=== PATIENT | female | born 1970 | race American Indian/Alaskan Native ===

== ENCOUNTER 2017-08-30 19:23 | Emergency (ER) | payer SELFPAY ==
[2017-08-30 21:36] LABS: Bacteria,Urine 2+ /HPF (Negative); Bilirubin,Urine NEG (Negative); Blood,Urine NEG (Negative); Color,Urine Yellow (Yellow); Mucus,Urine 2+ /HPF; Protein,Urine <15 mg/dL mg/dL (Negative); Urobilinogen,Urine < 2.0 mg/dL (<2.0)
[2017-08-31] MEDS ORDERED: NACL 0.9% 1000 ML 1,000 ML IV ONE (00:35)
[2017-08-31] MEDS ORDERED: TORADOL IV ONE (00:35)
[2017-08-31] MEDS ORDERED: ZOFRAN IV ONE (00:36)
--- NOTE | 2017-08-31 00:40 | Emergency Department Report ---
ED Abdominal Pain HPI - General Chief Complaint: Urogenital-Female Stated Complaint: ABDOMINAL PAIN,NAUSEA Time Seen by Provider: 08/30/17 23:56 Source: patient, RN notes reviewed Mode of arrival: Ambulatory Limitations: No Limitations - History of Present Illness Initial Comments: His is a 46-year-old female. The patient is previously unknown to this provider. Has a history of hysterectomy. Does not have a local primary care doctor. Denies chronic medical conditions. Presents to the ER with a complaint of lower abdominal pain. It has been on and off presents for the past few weeks. They got sharper this evening and his came in. It does not radiate anywhere. Positive nausea, no vomiting. Denies urinary symptoms. Denies headache, neck pain, chest pain, shortness of breath. Patient has one sexual partner whom she is monogamous with. MD Complaint: abdominal pain -: Gradual Location: LLQ, RLQ, suprapubic Severity: mild Quality: cramping Consistency: intermittent Improves With: nothing Worsens With: nothing Associated Symptoms: nausea. denies: vomiting, diarrhea, fever, chills, constipation, dysuria, hematemesis, hematochezia, melena, hematuria, anorexia, syncope - Related Data Previous Rx's Medication Instructions Recorded Last Taken Type Acetaminophen [Tylenol Arthritis] 650 mg PO Q6HR PRN #30 tablet.er 08/31/17 Unknown Rx Dicyclomine [Bentyl] 10 mg PO QID PRN #20 capsule 08/31/17 Unknown Rx Ibuprofen [Motrin] 600 mg PO Q8H PRN #30 tablet 08/31/17 Unknown Rx Ondansetron [Zofran Odt] 4 mg PO Q8HR PRN #20 tab.rapdis 08/31/17 Unknown Rx Allergies Allergy/AdvReac Type Severity Reaction Status Date / Time levofloxacin [From Levaquin] Allergy Unknown Verified 08/30/17 20:57 Penicillins Allergy Unknown Verified 08/30/17 20:57 ED Review of Systems ROS: Stated complaint: ABDOMINAL PAIN,NAUSEA Other details as noted in HPI Comment: All other systems reviewed and negative ED Past Medical Hx - Past Medical History Additional medical history: hyperthyroid - Surgical History Additional Surgical History: parital hysterectomy - Social History Smoking Status: Current Some Day Smoker Substance Use Type: Alcohol - Medications Home Medications: Home Medications Medication Instructions Recorded Confirmed Last Taken Type Acetaminophen [Tylenol Arthritis] 650 mg PO Q6HR PRN #30 tablet.er 08/31/17 Unknown Rx Dicyclomine [Bentyl] 10 mg PO QID PRN #20 capsule 08/31/17 Unknown Rx Ibuprofen [Motrin] 600 mg PO Q8H PRN #30 tablet 08/31/17 Unknown Rx Ondansetron [Zofran Odt] 4 mg PO Q8HR PRN #20 tab.rapdis 08/31/17 Unknown Rx ED Physical Exam - General Limitations: No Limitations General appearance: alert, in no apparent distress - Head Head exam: Present: atraumatic, normocephalic - Eye Eye exam: Present: normal appearance, EOMI. Absent: nystagmus - ENT ENT exam: Present: normal exam, normal orophraynx, mucous membranes moist, normal external ear exam - Neck Neck exam: Present: normal inspection, full ROM - Respiratory Respiratory exam: Present: normal lung sounds bilaterally. Absent: respiratory distress - Cardiovascular Cardiovascular Exam: Present: regular rate, normal rhythm. Absent: systolic murmur, diastolic murmur, rubs, gallop - GI/Abdominal GI/Abdominal exam: Present: soft, tenderness, normal bowel sounds, other (there is suprapubic tenderness and mild bilateral lower quadrant tenderness. There is no rebound, guarding or peritoneal signs). Absent: distended, guarding, rebound, rigid, pulsatile mass - External exam: Present: normal external exam Speculum exam: Present: normal speculum exam. Absent: cervical discharge, vaginal bleeding, foreign body Bi-manual exam: Present: other (escorted by ER oxygen therapy technician Frances Mendez). Absent: cervical motion tendernes, adnexal tenderness, adnexal mass - Extremities Exam Extremities exam: Present: normal inspection, full ROM, normal capillary refill. Absent: pedal edema, joint swelling, calf tenderness - Back Exam Back exam: Present: normal inspection, full ROM. Absent: tenderness, CVA tenderness (R), paraspinal tenderness, vertebral tenderness - Neurological Exam Neurological exam: Present: alert, oriented X3, CN II-XII intact, normal gait, other (Extraocular movements intact. Tongue midline. No facial droop. Facial sensation intact to light touch in the V1, V2, V3 distribution bilaterally. 5 and 5 strength in 4 extremities.. Sensation is intact to light touch in 4 extremities.). Absent: motor sensory deficit - Psychiatric Psychiatric exam: Present: normal affect, normal mood - Skin Skin exam: Present: warm, dry, intact, normal color. Absent: rash ED Course Vital Signs 08/30/17 08/30/17 20:37 20:53 Temperature 98.4 F 98.4 F Pulse Rate 72 72 Respiratory 16 16 Rate Blood Pressure 129/80 129/80 O2 Sat by Pulse 100 100 Oximetry - Reevaluation(s) Reevaluation #1: 08/31/17 00:39 Differential diagnosis, including but not limited to: Appendicitis, endometriosis, colitis, diverticulitis, bowel obstruction, functional abdominal pain Assessment and plan: 46-year-old female with mild lower abdominal tenderness, no rebound or guarding. Has an otherwise benign physical exam. Pain has been present for a few weeks and she reports that it got worse this evening. I doubt surgical disease but we will obtain CT scan of the abdomen and pelvis with IV contrast. Reevaluation #2: 08/31/17 00:40 The patient denies urinary symptoms. Her urinalysis is contaminated. It is not consistent with a urinary tract infection. Reevaluation #3: 08/31/17 01:54 Laboratory studies reviewed and are unremarkable. CT scan is pending. TIERNEY Mendez will follow up on ct a/p and if negative, discharge ED Medical Decision Making - Lab Data Result diagrams: 08/31/17 00:58 08/31/17 00:58 Vital Signs 08/30/17 08/30/17 20:37 20:53 Temperature 98.4 F 98.4 F Pulse Rate 72 72 Respiratory 16 16 Rate Blood Pressure 129/80 129/80 O2 Sat by Pulse 100 100 Oximetry Lab Results 08/30/17 Range/Units 20:00 Urine Color Yellow (Yellow) Urine Turbidity Clear (Clear) Urine pH 5.0 (5.0-7.0) Ur Specific [place] 1.027 (1.003-1.030) Urine Protein <15 mg/dl (Negative) mg/dL Urine Glucose (UA) Neg (Negative) mg/dL Urine Ketones Neg (Negative) mg/dL Urine Blood Neg (Negative) Urine Nitrite Neg (Negative) Urine Bilirubin Neg (Negative) Urine Urobilinogen < 2.0 (<2.0) mg/dL Ur Leukocyte Esterase Sm (Negative) Urine WBC (Auto) 3.0 (0.0-6.0) /HPF Urine RBC (Auto) 1.0 (0.0-6.0) /HPF U Epithel Cells (Auto) 19.0 H (0-13.0) /HPF Urine Bacteria (Auto) 2+ (Negative) /HPF Urine Mucus 2+ /HPF Critical care attestation.: If time is entered above; I have spent that time in minutes in the direct care of this critically ill patient, excluding procedure time. ED Disposition Clinical Impression: Abdominal pain Disposition: DC-01 TO HOME OR SELFCARE Is pt being admited?: No Does the pt Need Aspirin: No Condition: Stable Instructions: Abdominal Pain (ED) Additional Instructions: Cultures were sent today. Results will be available in the next 3-5 days. Have primary care doctor or contact the medical records department to obtain culture results. Return to the ER right away with new pain, worse pain, migration of pain, fevers, chills, lethargy, irritability, vomiting, change in mental status, confusion, inability to tolerate liquid feeds. Referrals: NICOLE ESTRADA MD [Primary Care Provider] - 3-5 Days MITCH OBRIEN MD [Staff Physician] - 3-5 Days
[2017-08-31 01:08] LABS: Basophils % (Auto) 0.5 % (0.0-1.8); Eosinophils # (Auto) 0.1 K/mm3 (0.0-0.4); Eosinophils % (Auto) 1.5 % (0.0-4.3); Hematocrit 38.2 % (30.3-42.9); Lymphocytes # (Auto) 2.5 K/mm3 (1.2-5.4); Lymphocytes % (Auto) 28.5 % (13.4-35.0); Mean Corpuscular HGB Conc 34 % (30-34); Mean Corpuscular Hemoglobin 33 pg (28-32); Mean Corpuscular Volume 96 fl (79-97); Monocytes # (Auto) 0.7 K/mm3 (0.0-0.8); Monocytes % (Auto) 8.4 % (0.0-7.3); Platelet Count 261 K/mm3 (140-440); Red Blood Count 3.98 M/mm3 (3.65-5.03); Red Cell Distribution Width 12.5 % (13.2-15.2)
[2017-08-31 01:25] LABS: BUN/Creatinine Ratio 23; Blood Urea Nitrogen 14 mg/dL (7-17); Calcium 9.3 mg/dL (8.4-10.2); Hemolysis Index 3
[2017-08-31] MEDS ORDERED: NACL ONE (01:50)
--- NOTE | 2017-08-31 03:41 | Cat Scan Report ---
FINAL REPORT EXAM: CT ABDOMEN PELVIS W CON HISTORY: abd pain TECHNIQUE: Routine axial imaging was obtained of the abdomen and pelvis following the intravenous injection of 100 cc of Omnipaque 300. Sagittal and coronal reconstructions were reviewed. Additional delayed axial imaging was obtained through the kidneys ureters and bladder. FINDINGS: The lung bases are clear. Pleural fluid is not seen. The liver, gallbladder, pancreas, spleen, and adrenal glands appear normal. The kidneys enhance normally. The vascular structures enhance normally. The abdominal aorta is normal in caliber. Bowel loops are normal in caliber and course. There is no evidence of free fluid or adenopathy. The appendix is not seen with certainty. In the pelvis the bladder appears normal. Free fluid is not seen. The skeletal structures do not show any acute changes. IMPRESSION: No acute process in the abdomen and pelvis. Appendix not identified.
[2017-08-31 04:09] VITALS: BP 108/58
== END 2017-08-31 04:07 | disposition home or self-care (01) ==
LOC: ED 19:23
DX: R10.32 Left lower quadrant pain (principal); R10.31 Right lower quadrant pain; F17.200 Nicotine dependence, unspecified, uncomplicated; E05.90 Thyrotoxicosis, unspecified without thyrotoxic crisis or storm; Z88.0 Allergy status to penicillin; Z88.1 Allergy status to other antibiotic agents; Z90.711 Acquired absence of uterus with remaining cervical stump
CPT/HCPCS: 36415; 74177; 80048; 81001; 85025; 87210; 87591; 96361; 96374; 96375; 99284; J1885; J2405; J7030; Q9967